=== PATIENT | female | born 1985 ===

== ENCOUNTER 2021-06-03 07:49 | Outpatient (REF) | payer OTHER, SELFPAY ==
[2021-06-03 11:41] LABS: MANUAL DIFF FLAG NO
[2021-06-03 11:45] LABS: Basophils Absolute Auto 0.1 X10*3/uL (0.0-0.2); Basophils Percent Auto 0.8 % (0-2); Eosinophils Absolute Auto 0.1 X10*3/uL (0.0-0.4); Eosinophils Percent Auto 1.5 % (0-4); Hematocrit 41.5 % (37.0-47.0); Hemoglobin 13.3 g/dl (12.0-16.0); Imm Gran Abs Auto 0.02 X10*3/uL (0.00-0.03); Imm Gran Pct Auto 0.3 % (0.0-0.4); Lymphocytes Absolute Auto 2.2 X10*3/uL (1.2-4.9); Mean Corpuscular Hemoglobin 25.9 pg (27.0-33.0); Mean Corpuscular Volume 80.7 fL (80.0-98.0); Mean Platelet Volume 10.8 fL (9.4-12.3); Monocytes Absolute Auto 0.5 X10*3/uL (0.1-1.2); Monocytes Percent Auto 7.3 % (2-11); Neutrophils Absolute Auto 3.8 x10*3/uL (2.0-8.3); Neutrophils Percent Auto 57.1 % (45-73); Platelet Count 325 X10*3/uL (160-400); Red Blood Count 5.14 X10*6/uL (4.20-5.50); Red Cell Distribution Width 15.2 % (11.0-16.0); White Blood Count 6.6 X10*3/uL (4.8-10.8)
[2021-06-03 12:14] LABS: Alanine Aminotransferase 16 U/L (0-31); Albumin Level 4.5 g/dL (3.5-5.0); Alkaline Phosphatase 38 U/L (39-117); Anion Gap 11 (12-20); Aspartate Amino Transferase 13 U/L (5-31); Bilirubin Total 0.5 mg/dL (0.0-1.0); Blood Urea Nitrogen 7 mg/dL (9-16); Calcium 9.3 mg/dL (8.4-10.2); Carbon Dioxide 26 mmol/L (22-29); Chloride 108 mmol/L (96-108); Cholesterol 181 mg/dL; Estimated Glomerular Filt Rate > 60; Glucose Fasting 110 mg/dL (60-99); HDL Cholesterol 46 mg/dL; LDL Cholesterol Calculated 117 mg/dl; Potassium 4.6 mmol/L (3.3-5.1); Sodium 140 mmol/L (135-145); Total Protein 6.8 g/dL (6.5-8.0); Triglycerides 94 mg/dL
[2021-06-03 12:28] LABS: TSH reflex Free T4 2.01 uIU/mL (0.32-4.0)
[2021-06-03 12:36] LABS: Vitamin B12 421 pg/mL (200-900)
[2021-06-08 15:26] LABS: Vitamin D 25-OH, D2 <4 ng/mL; Vitamin D 25-OH, D3 27 ng/mL; Vitamin D 25-OH, Total 27 ng/mL (30-100)
== END 2021-06-03 07:50 | disposition home or self-care (01) ==
LOC: HO.HMGCLDS 07:49
PROVIDERS: PCP Internal Medicine; Visit Provider Internal Medicine
DX: Z00.01 Encounter for general adult medical examination with abnormal findings (principal); E03.8 Other specified hypothyroidism; N97.9 Female infertility, unspecified; Z91.09 Other allergy status, other than to drugs and biological substances
CPT/HCPCS: 36415; 80053; 80061; 82306; 82607; 84443; 85025

== ENCOUNTER 2021-07-26 13:44 | Outpatient (REF) | payer OTHER, SELFPAY | END 2021-07-26 13:45 | disposition home or self-care (01) | LOC: HO.HMGCLDS 13:44 | PROVIDERS: PCP Internal Medicine; Visit Provider Internal Medicine | DX: Z20.822 Contact with and (suspected) exposure to COVID-19 (principal) | CPT/HCPCS: C9803; U0003; U0005 ==

== ENCOUNTER 2021-12-05 18:34 | Outpatient (REF) | payer OTHER, SELFPAY ==
[2021-12-05 19:17] LABS: Influenza A PCR POSITIVE (Negative); Influenza B PCR NEGATIVE (Negative); Resp Syncy Virus RNA Qual PCR NEGATIVE (Negative); SARS COV2 PCR INHOUSE NEGATIVE (Negative)
== END 2021-12-05 18:35 | disposition home or self-care (01) ==
LOC: HO.LNP 18:34
PROVIDERS: Visit Provider Internal Medicine
DX: Z20.822 Contact with and (suspected) exposure to COVID-19 (principal); R43.9 Unspecified disturbances of smell and taste
CPT/HCPCS: 0241U

== ENCOUNTER 2022-06-13 15:08 | Outpatient (REF) | payer OTHER, SELFPAY ==
[2022-06-13 16:24] LABS: MANUAL DIFF FLAG NO
[2022-06-13 16:38] LABS: Basophils Percent Auto 0.6 % (0-2); Eosinophils Absolute Auto 0.1 X10*3/uL (0.0-0.4); Eosinophils Percent Auto 1.5 % (0-4); Estimated Average Glucose 108 mg/dL; Hematocrit 41.3 % (37.0-47.0); Hemoglobin 13.4 g/dl (12.0-16.0); Hemoglobin A1c % 5.4 %; Imm Gran Abs Auto 0.03 X10*3/uL (0.00-0.03); Imm Gran Pct Auto 0.5 % (0.0-0.4); Lymphocytes Absolute Auto 2.5 X10*3/uL (1.2-4.9); Lymphocytes Percent Auto 38.4 % (20-40); Mean Corpuscular HGB Conc 32.4 g/dl (31.0-35.0); Mean Corpuscular Hemoglobin 27.7 pg (27.0-33.0); Mean Corpuscular Volume 85.3 fL (80.0-98.0); Mean Platelet Volume 10.6 fL (9.4-12.3); Monocytes Absolute Auto 0.5 X10*3/uL (0.1-1.2); Monocytes Percent Auto 6.8 % (2-11); Neutrophils Absolute Auto 3.4 x10*3/uL (2.0-8.3); Neutrophils Percent Auto 52.2 % (45-73); Platelet Count 289 X10*3/uL (160-400); Red Blood Count 4.84 X10*6/uL (4.20-5.50); Red Cell Distribution Width 14.9 % (11.0-16.0); White Blood Count 6.6 X10*3/uL (4.8-10.8)
[2022-06-13 17:42] LABS: Alanine Aminotransferase 22 U/L (0-31); Albumin Level 4.5 g/dL (3.5-5.0); Alkaline Phosphatase 45 U/L (39-117); Anion Gap 12 (12-20); Aspartate Amino Transferase 15 U/L (5-31); Bilirubin Total 0.4 mg/dL (0.0-1.0); Blood Urea Nitrogen 7 mg/dL (9-16); Calcium 9.3 mg/dL (8.4-10.2); Carbon Dioxide 28 mmol/L (22-29); Chloride 104 mmol/L (96-108); Estimated Glomerular Filt Rate > 60; Ferritin 12 ng/mL (10-122); Glucose Random 96 mg/dL (60-115); Potassium 4.2 mmol/L (3.3-5.1); Sodium 140 mmol/L (135-145); TSH reflex Free T4 4.52 uIU/mL (0.32-4.0); Total Protein 6.9 g/dL (6.5-8.0)
[2022-06-13 17:59] LABS: Folate > 20.0 ng/mL (> or = 4.0); Vitamin B12 421 pg/mL (200-900)
[2022-06-13 18:28] LABS: Free T4 (Free Thyroxine) 1.09 ng/dL (0.71-1.85)
[2022-06-14 07:47] LABS: LDL Cholesterol Direct 115 mg/dL (<100)
[2022-06-17 14:11] LABS: Vitamin D 25-OH, D2 <4 ng/mL; Vitamin D 25-OH, D3 19 ng/mL; Vitamin D 25-OH, Total 19 ng/mL (30-100)
== END 2022-06-13 15:09 | disposition home or self-care (01) ==
LOC: HO.HMGCLDS 15:08
PROVIDERS: PCP Internal Medicine; Visit Provider Internal Medicine
DX: Z00.01 Encounter for general adult medical examination with abnormal findings (principal); M19.90 Unspecified osteoarthritis, unspecified site; R53.83 Other fatigue; E03.8 Other specified hypothyroidism; R73.01 Impaired fasting glucose; Z91.09 Other allergy status, other than to drugs and biological substances
CPT/HCPCS: 36415; 80053; 82306; 82607; 82728; 82746; 83036; 83721; 84439; 84443; 85025

== ENCOUNTER 2023-06-01 15:41 | Outpatient (AMB) | payer OTHER, SELFPAY ==
[2023-06-01 15:49] VITALS: BP 122/80; PULSE 101; TEMP 37.2; O2SAT 98; BMI 30.7
--- NOTE | 2023-06-01 15:49 | AM.OFFWIN_ITS ---
Intake Vital Signs 06/01/23 15:49 Height 5 ft 6 in Weight 190 lb 8 oz BMI 30.7 BP 122/80 Blood Pressure Location Rt brachial Position Sitting Pulse 101 H Pulse Source Pulse Oximeter Temp 98.9 F Temp Source Temporal Artery Scan Pulse Oximetry (%) 98 Intake Visit Reasons: EST/ear pain Intake Note: pt is here for c/o ear pain bilateral with fatigue Patient Tobacco Use Status: Never used Tobacco Allergies No Known Allergies Allergy (Verified 06/01/23 16:21) Medication List - Last Reconciled 06/01/23 by Paul Rutledge MD azithromycin take 500 mg today (day 1), then 250 mg for 4 days (days 2-5) PO calcium carbonate (Calcium 500) 500 mg PO BID cetirizine (All Day Allergy (cetirizine)) 10 mg PO .qhs 90 days cholecalciferol (vitamin D3) 25 mcg PO DAILY 90 days levothyroxine 88 mcg PO DAILY 90 days bmeemksu-vjqwzdlss-OW 3.5-10,000-1 mg/mL-unit/mL-% 4 drps otic (ears) Q8H Do you need a note to return to daycare/school/sports/work: Yes HPI EST/ear pain HPI Details Patient presents for a sick visit. Reporting symptoms of sinus congestion, sore throat and difficulty swallowing. Low-grade fever. No family member is sick. No recent travel. Patient reports symptoms of malaise and fatigue. [facility] Social History Housing: House Patient Tobacco Use Status: Never used Tobacco e-Cigarette/Vaping Use: Never Used Second Hand Smoke Exposure: No Current occupational status: employed Cognitive needs: No Hearing needs: No Vision needs: No Physical Exam Vital Signs: Last Vital Signs Temp 98.9 F 06/01/23 15:49 Pulse 101 H 06/01/23 15:49 BP 122/80 06/01/23 15:49 Pulse Ox 98 06/01/23 15:49 BMI result Body Mass Index 30.7 Const General: cooperative and healthy appearing Nutritional Appearance: well nourished Orientation/consciousness: patient oriented x3 Limitations: no limitations HEENT Other: Right ear canal congested. Head: Yes normal to inspection Eyes General: appearance normal, both eyes and all related structures Neck Neck: Yes normal visual inspection Chest Chest palpation & inspection: normal palpation of entire chest wall Resp Effort & Inspection: normal respiratory effort Neuro General: patient oriented x3 Assessment & Plan Assessment & Plan (1) Upper respiratory tract infection: Code(s): J06.9 - Acute upper respiratory infection, unspecified Plan: Antibiotics ordered. Increase fluid intake. Tylenol for aches and pains. If symptoms worsen, follow-up here for a recheck. Medications: New rhhvpdxa-riygdgxav-FJ 3.5-10,000-1 mg/mL-unit/mL-% 4 drps otic (ears) Q8H 10 mL 0RF azithromycin take 500 mg today (day 1), then 250 mg for 4 days (days 2-5) PO 6 tabs 0RF Refilled cetirizine (All Day Allergy (cetirizine)) 10 mg PO .qhs 90 tabs 1RF 90 days Z91.09 - Other allergy status, other than to drugs and biological substances Coding Level of Care Code Est Pt Level 3 (98189) Diagnoses Upper respiratory tract infection J06.9
== END 2023-06-01 16:51 | disposition home or self-care (01) ==
PROVIDERS: PCP Internal Medicine; Visit Provider Internal Medicine
DX: J06.9 Acute upper respiratory infection, unspecified (principal)
CPT/HCPCS: 99213

== ENCOUNTER 2023-06-15 14:35 | Outpatient (AMB) | payer OTHER, SELFPAY ==
[2023-06-15 14:41] VITALS: BP 128/80; PULSE 83; O2SAT 98; BMI 30.9
--- NOTE | 2023-06-15 14:41 | MHC.PC.OV ---
Vital Signs 06/15/23 14:41 Height 5 ft 6 in Weight 191 lb 6 oz BMI 30.9 BP 128/80 Blood Pressure Location Rt brachial Position Sitting Pulse 83 Pulse Source Pulse Oximeter Pulse Oximetry (%) 98 Oxygen Delivery Method Room Air Intake Visit Reasons: Annual Allergies No Known Allergies Allergy (Verified 06/15/23 14:42) Medication List - Last Reconciled 06/15/23 by Norman Xiao MD calcium carbonate (Calcium 500) 500 mg PO BID cetirizine (All Day Allergy (cetirizine)) 10 mg PO .qhs 90 days cholecalciferol (vitamin D3) 25 mcg PO DAILY 90 days levothyroxine 88 mcg PO DAILY 90 days Tobacco use date assessed: 06/15/23 Dental Screening Dental Screen Date: 06/15/23 Did you have a dental visit in the last 12 months?: Yes Did you have a dental problem in the last 6 months where you did not have access to dental care?: No Was dental information given to patient?: Patient has dentist HPI Annual HPI Details Patient is a 37-year-old female came in today for annual physical examination BMI is 30.9 patient is a sweet She is taking levothyroxine 88 mcg and is due for labs Vital signs are stable [facility] Social History Housing: House Patient Tobacco Use Status: Never used Tobacco e-Cigarette/Vaping Use: Never Used Second Hand Smoke Exposure: No Current occupational status: employed Cognitive needs: No Hearing needs: No Vision needs: No Questionnaire PHQ-9 Over the last 2 weeks, how often have you been bothered by any of the following problems? 1. Little interest or pleasure in doing things: several days 2. Feeling down, depressed, or hopeless: not at all 3. Trouble falling or staying asleep, or sleeping too much: several days 4. Feeling tired or having little energy: several days 5. Poor appetite or overeating: not at all 6. Feeling bad about yourself - or that you are a failure or have let yourself or your family down: not at all 7. Trouble concentrating on things, such as reading the newspaper or watching television: not at all 8. Moving or speaking so slowly that other people could have noticed. Or the opposite - being so fidgety or restless that you have been moving around a lot more than usual: not at all 9. Thoughts that you would be better off or of hurting yourself in some way: not at all Total score: 3 Depression Screening Interpretation: Negative Depression Screening Done: Yes 00891 - PHQ-9 Billing: Yes Source: Developed by Drs. David Cano, Gloria William, Jerome Figueroa and colleagues, with an educational celia from [employer] Thrive Questionnaire Date Thrive assessed: 06/15/23 I am a: Patient What is your living situation today?: I have a steady place to live Within the past 12 months, did the food you bought not last and you didn't have the money to get more?: Never true Within the past 12 months, did you worry whether your food would run out before you got money to buy more?: Never true Do you have trouble paying for medicines?: No Do you have trouble getting transportation to medical appointments?: No Do you have trouble paying your heating and electricity bill?: No Do you have trouble taking care of your child, family member or friend?: No Do you have trouble with day-to-day activities such as bathing, preparing meals, shopping, managing finances, etc.?: No Are you currently unemployed and looking for a job?: No Are you interested in more education?: No Please select the resources that you would like help with: None Currently or been in a relationship where the following occur: no concerns reported AUDIT C Alcohol Use Questionnaire (AUDIT-C) 1. How often do you have a drink containing alcohol?: Never 3. How often do you have six or more drinks on one occasion?: Never Total Score: 0 Score Reviewed/Action Taken: Yes ROCIO-7 AMB Questionnaire ROCIO-7 Date ROCIO - 7 assessed: 06/15/23 Feeling nervous, anxious, or on edge: 1 = Several days Not being able to stop or control worryin = Several days Worrying too much about different things: 1 = Several days Trouble relaxin = Several days Being so restless that it is hard to sit still: 1 = Several days Becoming easily annoyed or irritable: 1 = Several days Feeling afraid as if something awful might happen: 0 = Not at all Total ROCIO-7 score (0-4 normal; 5-9 mild; 10-14 moderate; 15-21 severe): 6 Source: Developed by Drs. David Cano, Gloria William, Jerome Figueroa and colleagues, with an educational celia from [employer] ROCIO-7 Assessment Billing ROCIO-7 Assessment Tool: ROCIO-7 Assessment 70748 Review of Systems Const Denies chills, Denies fever(s) and Denies headache(s) Eyes Denies blurry vision ENT Denies headache(s), Denies nasal discharge, Denies nasal obstruction, Denies odynophagia and Denies sinus pain Card Denies chest pain at rest and Denies chest pain with activity Resp Denies cough and Denies hemoptysis GI Denies diarrhea, Denies odynophagia, Denies vomiting and Denies hematemesis Reports as per HPI Musc Denies abnormal gait Skin/Breast Reports as per HPI Neuro Denies Neuro-related abnormal movements, Denies Abnormal speech present, Denies abnormal gait, Denies headache(s) and Denies Sensory deficit (Neuro) Psych Denies mood swings and Denies paranoia Endo Reports as per HPI Kayden/Lymph Reports as per HPI Aller/Immun Reports as per HPI Physical exam (Primary Care) Vital Signs: Last Vital Signs Pulse 83 06/15/23 14:41 BP 128/80 06/15/23 14:41 Pulse Ox 98 06/15/23 14:41 Oxygen Delivery Method Room Air 06/15/23 14:41 BMI result Body Mass Index 30.9 Tobacco/Smoking Status: Tobacco use Status Tobacco use date assessed 06/15/23 06/15/23 14:43 Patient Tobacco Use Status Never used Tobacco 06/15/23 14:43 e-Cigarette/Vaping Use Never Used 06/15/23 14:43 PHQ-9: PHQ-9 Score PHQ-9: Total score 3 06/15/23 15:14 Depression Screening Interpretation: Negative Thrive Assessment: Date of Thrive Assessment Date Thrive assessed 06/15/23 06/15/23 15:14 Currently or been in a relationship where the following occur: no concerns reported Const General: cooperative, comfortable and no acute distress Orientation/consciousness: patient oriented x3 HENMT Head: Yes normocephalic and Yes atraumatic Eyes General: appearance normal, both eyes and all related structures Pupils: Equal, round and reactive pupils present EOM: EOMs intact bilaterally Neck Neck: Yes supple and No lymphadenopathy Thyroid: Thyroid normal Lymphatic: no lymphadenopathy noted Resp Effort & Inspection: normal respiratory effort and able to speak in complete sentences Auscultation: clear to auscultation bilaterally Cardio Heart sounds: S1 normal heart sound present and S2 normal heart sound present GI Palpation (GI): Soft to palpation and nontender Auscultation: normal bowel sounds General: Yes no CVA tenderness Back/Spine/Pelvis Back: no CVA tenderness Skin General skin exam: elasticity normal and turgor normal Neuro General: patient oriented x3 and gait normal Cranial nerves: Yes Equal, round and reactive pupils present Speech: No Abnormal speech present Sensory Exam: No Sensory deficit (Neuro) Coordination: tandem gait normal and Romberg test negative Extrem General: Yes normal exam except as noted and No edema Assessment and Plan Assessment & Plan (1) Encounter for general adult medical examination with abnormal findings: Code(s): Z00.01 - Encounter for general adult medical examination with abnormal findings (2) Environmental allergies: Code(s): Z91.09 - Other allergy status, other than to drugs and biological substances (3) Other specified hypothyroidism: Code(s): E03.8 - Other specified hypothyroidism (4) Vitamin D deficiency: Code(s): E55.9 - Vitamin D deficiency, unspecified (5) Impaired fasting blood sugar: Code(s): R73.01 - Impaired fasting glucose (6) Obesity due to excess calories: Code(s): E66.09 - Other obesity due to excess calories Qualifiers: Obesity classification: adult class 1 (BMI 30 - 34.9) Serious obesity comorbidity presence: without serious comorbidity Body mass index: BMI 30.0-30.9 Qualified Code(s): E66.09 - Other obesity due to excess calories; Z68.30 - Body mass index [BMI] 30.0-30.9, adult Plan Patient is a 42-year-old male came in today for his regular follow-up appointment Hypertension: Blood pressure is well controlled patient is taking atenolol chlorthalidone 50-25 mg and is tolerating medication. Asthma is stable patient is on montelukast and Dulera. Headaches are stable with amitriptyline 100 mg at night and sumatriptan as needed. GERD is stable with omeprazole. Labs were done February of this year reviewed again. New set of lab order placed to be done in October before visit. BMI is elevated patient is trying to lose weight. Orders: Orders Complete Blood Count Auto Diff Today E03.8 - Other specified hypothyroidism, E55.9 - Vitamin D deficiency, unspecified, R73.01 - Impaired fasting glucose, Z00.01 - Encounter for general adult medical examination with abnormal findings, Z91.09 - Other allergy status, other than to drugs and biological substances Comprehensive [place]. Panel Fast Today E03.8 - Other specified hypothyroidism, E55.9 - Vitamin D deficiency, unspecified, R73.01 - Impaired fasting glucose, Z00.01 - Encounter for general adult medical examination with abnormal findings, Z91.09 - Other allergy status, other than to drugs and biological substances Lipid Panel Today E03.8 - Other specified hypothyroidism, E55.9 - Vitamin D deficiency, unspecified, E66.09 - Other obesity due to excess calories, R73.01 - Impaired fasting glucose, Z00.01 - Encounter for general adult medical examination with abnormal findings, Z91.09 - Other allergy status, other than to drugs and biological substances TSH reflex Free T4 Today E03.8 - Other specified hypothyroidism, E55.9 - Vitamin D deficiency, unspecified, R73.01 - Impaired fasting glucose, Z00.01 - Encounter for general adult medical examination with abnormal findings, Z91.09 - Other allergy status, other than to drugs and biological substances Vitamin D 25-OH (D2 and D3) Today E03.8 - Other specified hypothyroidism, E55.9 - Vitamin D deficiency, unspecified, R73.01 - Impaired fasting glucose, Z00.01 - Encounter for general adult medical examination with abnormal findings, Z91.09 - Other allergy status, other than to drugs and biological substances Hemoglobin A1c Today R73.01 - Impaired fasting glucose Coding Level of Care Code Est Pt Prev Care 18-39y([id number]) Diagnoses Encounter for general adult medical examination with abnormal findings Z00.01 Environmental allergies Z91.09 Other specified hypothyroidism E03.8 Vitamin D deficiency E55.9 Impaired fasting blood sugar R73.01 Class 1 obesity due to excess calories without serious comorbidity with body mass index (BMI) of 30.0 to 30.9 in adult E66.09; Z68.30 Obesity classification: adult class 1 (BMI 30 - 34.9) Serious obesity comorbidity presence: without serious comorbidity Body mass index: BMI 30.0-30.9 Additional Codes ROCIO-7 Assessment Billing - ROCIO-7 Assessment Tool: ROCIO-7 Assessment 40804 ([id number])
== END 2023-06-15 15:08 | disposition home or self-care (01) ==
PROVIDERS: Visit Provider Internal Medicine
DX: Z00.00 Encounter for general adult medical examination without abnormal findings (principal); Z91.09 Other allergy status, other than to drugs and biological substances; E03.8 Other specified hypothyroidism; E55.9 Vitamin D deficiency, unspecified; R73.01 Impaired fasting glucose; E66.09 Other obesity due to excess calories; Z68.30 Body mass index [BMI] 30.0-30.9, adult
CPT/HCPCS: 99395

== ENCOUNTER 2023-07-19 09:27 | Outpatient (REF) | payer OTHER, SELFPAY ==
[2023-07-19 11:29] LABS: MANUAL DIFF FLAG NO
[2023-07-19 11:50] LABS: Basophils Percent Auto 0.5 % (0-2); Eosinophils Absolute Auto 0.1 X10*3/uL (0.0-0.4); Eosinophils Percent Auto 1.5 % (0-4); Hematocrit 42.4 % (37.0-47.0); Hemoglobin 13.7 g/dl (12.0-16.0); Imm Gran Abs Auto 0.02 X10*3/uL (0.00-0.03); Imm Gran Pct Auto 0.3 % (0.0-0.4); Lymphocytes Absolute Auto 2.2 X10*3/uL (1.2-4.9); Lymphocytes Percent Auto 36.5 % (20-40); Mean Corpuscular HGB Conc 32.3 g/dl (31.0-35.0); Mean Corpuscular Hemoglobin 26.2 pg (27.0-33.0); Mean Corpuscular Volume 81.2 fL (80.0-98.0); Mean Platelet Volume 10.5 fL (9.4-12.3); Monocytes Absolute Auto 0.4 X10*3/uL (0.1-1.2); Monocytes Percent Auto 5.9 % (2-11); Neutrophils Absolute Auto 3.4 x10*3/uL (2.0-8.3); Neutrophils Percent Auto 55.3 % (45-73); Platelet Count 295 X10*3/uL (160-400); Red Blood Count 5.22 X10*6/uL (4.20-5.50); Red Cell Distribution Width 15.3 % (11.0-16.0); White Blood Count 6.1 X10*3/uL (4.8-10.8)
[2023-07-19 11:58] LABS: Estimated Average Glucose 117 mg/dL; Hemoglobin A1c % 5.7 % (<6.0)
[2023-07-19 12:40] LABS: Alanine Aminotransferase 16 U/L (0-31); Albumin Level 4.5 g/dL (3.5-5.0); Alkaline Phosphatase 31 U/L (39-117); Anion Gap 11 (12-20); Aspartate Amino Transferase 14 U/L (5-31); Bilirubin Total 0.4 mg/dL (0.0-1.0); Blood Urea Nitrogen 8 mg/dL (9-16); Calcium 9.1 mg/dL (8.4-10.2); Carbon Dioxide 26 mmol/L (22-29); Chloride 107 mmol/L (96-108); Cholesterol 162 mg/dL (<200); Estimated Glomerular Filt Rate > 60; Glucose Fasting 92 mg/dL (60-99); HDL Cholesterol 48 mg/dL (>40); LDL Cholesterol Calculated 98 mg/dL (<100); Potassium 4.3 mmol/L (3.3-5.1); Sodium 140 mmol/L (135-145); TSH reflex Free T4 2.01 uIU/mL (0.32-4.0); Triglycerides 80 mg/dL (<150)
[2023-07-24 17:54] LABS: Vitamin D 25-OH, D2 <4 ng/mL; Vitamin D 25-OH, D3 20 ng/mL; Vitamin D 25-OH, Total 20 ng/mL (30-100)
== END 2023-07-19 09:28 | disposition home or self-care (01) ==
LOC: HO.HMGCLDS 09:27
PROVIDERS: PCP Internal Medicine; Visit Provider Internal Medicine
DX: Z00.01 Encounter for general adult medical examination with abnormal findings (principal); E03.8 Other specified hypothyroidism; E55.9 Vitamin D deficiency, unspecified; R73.01 Impaired fasting glucose; E66.09 Other obesity due to excess calories; Z91.09 Other allergy status, other than to drugs and biological substances
CPT/HCPCS: 36415; 80053; 80061; 82306; 83036; 84443; 85025

== ENCOUNTER 2023-10-05 15:08 | Outpatient (AMB) | payer OTHER, SELFPAY ==
[2023-10-05 15:09] VITALS: BP 124/78; PULSE 91; TEMP 37; O2SAT 98; BMI 30.7
--- NOTE | 2023-10-05 15:09 | AM.OFFWIN_ITS ---
Intake Vital Signs 10/05/23 15:09 Height 5 ft 6 in Weight 190 lb BMI 30.7 BP 124/78 Blood Pressure Location Rt brachial Position Sitting Pulse 91 Pulse Source Pulse Oximeter Temp 98.6 F Temp Source Oral Pulse Oximetry (%) 98 Oxygen Delivery Method Room Air Intake Visit Reasons: EP runny nose fatigue Intake Note: Pt is here today for runny nose started last night Patient Tobacco Use Status: Never used Tobacco Allergies No Known Allergies Allergy (Verified 10/05/23 15:10) Do you need a note to return to daycare/school/sports/work: No HPI HPI Comments History of Present Illness Details 37 y/o female patient who presents to [facility] in clinic with c/o runny nose and sneezing. Reports that symptoms started yesterday. Denies fevers but admits to chills. Denies nausea or vomiting. [facility] Social History Housing: House Patient Tobacco Use Status: Never used Tobacco e-Cigarette/Vaping Use: Never Used Second Hand Smoke Exposure: No Current occupational status: employed Cognitive needs: No Hearing needs: No Vision needs: No Review of Systems Const All systems reviewed & are unremarkable except as noted in HPI and below Physical Exam Vital Signs: Last Vital Signs Temp 98.6 F 10/05/23 15:09 Pulse 91 10/05/23 15:09 BP 124/78 10/05/23 15:09 Pulse Ox 98 10/05/23 15:09 Oxygen Delivery Method Room Air 10/05/23 15:09 BMI result Body Mass Index 30.7 Const General: comfortable and no acute distress Orientation/consciousness: patient oriented x3 HEENT Head: Yes normocephalic Ears: external ears normal and TM abnormal obstructed by cerumen bilateral General nose exam: Abnormal mucous membranes and turbinates present boggy and erythematous Face and sinus: Yes sinuses nontender Mouth: moist mucous membranes Resp Effort & Inspection: normal respiratory effort, able to speak in complete sentences and no cough Auscultation: clear to auscultation bilaterally, no crackles, no rales, no rhonchi and no wheezes Neuro General: patient oriented x3, gait normal and moves all extremities Psych Speech and movement: Normal speech and movement present Assessment & Plan Assessment & Plan (1) Acute nasopharyngitis (common cold): Code(s): J00 - Acute nasopharyngitis [common cold] Plan: - OTC cold/flu remedies - Rest and hydrate with warm water - Continue taking Ceterizine as directed for allergies. Orders: Orders SARS-CoV2/FLU/RSV Today J00 - Acute nasopharyngitis [common cold] Medications: New fluticasone propionate 50 mcg/actuation (Flonase Allergy Relief) 1 spray intranasal BID 16 grams 0RF J00 - Acute nasopharyngitis [common cold] Coding Level of Care Code Est Pt Level 3 (65075) Diagnoses Acute nasopharyngitis (common cold) J00 Time Spent (min) 15
== END 2023-10-05 15:54 | disposition home or self-care (01) ==
PROVIDERS: PCP Internal Medicine; Visit Provider Nurse Practitioner Family
DX: J00 Acute nasopharyngitis [common cold] (principal)
CPT/HCPCS: 99213

== ENCOUNTER 2023-10-05 15:34 | Outpatient (REF) | payer OTHER, SELFPAY ==
[2023-10-06 11:55] LABS: Influenza A PCR NEGATIVE (Negative); Influenza B PCR NEGATIVE (Negative); Resp Syncy Virus RNA Qual PCR NEGATIVE (Negative); SARS COV2 PCR INHOUSE NEGATIVE (Negative)
== END 2023-10-05 15:35 | disposition home or self-care (01) ==
LOC: HO.LAB 15:34
PROVIDERS: Visit Provider Nurse Practitioner Family
DX: Z11.52 Encounter for screening for COVID-19 (principal); Z20.822 Contact with and (suspected) exposure to COVID-19; J00 Acute nasopharyngitis [common cold]
CPT/HCPCS: 0241U

== ENCOUNTER 2023-12-11 15:12 | Outpatient (AMB) | payer OTHER, SELFPAY ==
[2023-12-11 15:19] VITALS: BP 120/86; PULSE 90; O2SAT 98; BMI 30.9
--- NOTE | 2023-12-11 15:19 | A.OFFPC_ITS ---
Vital Signs 12/11/23 15:19 Height 5 ft 6 in Weight 191 lb 6 oz BMI 30.9 BP 120/86 Blood Pressure Location Rt brachial Position Sitting Pulse 90 Pulse Source Pulse Oximeter Pulse Oximetry (%) 98 Oxygen Delivery Method Room Air Intake Visit Reasons: 6 Month F/U Allergies No Known Allergies Allergy (Verified 12/11/23 15:21) Medication List - Last Reconciled 12/11/23 by Norman Xiao MD cetirizine (All Day Allergy (cetirizine)) 10 mg PO .qhs 90 days cholecalciferol (vitamin D3) 1,250 mcg PO QWEEK 3 months fluticasone propionate 50 mcg/actuation 1 spray intranasal BID levothyroxine 88 mcg PO DAILY 90 days Tobacco use date assessed: 12/11/23 Dental Screening Dental Screen Date: 12/11/23 Did you have a dental visit in the last 12 months?: Yes Did you have a dental problem in the last 6 months where you did not have access to dental care?: No Was dental information given to patient?: Patient has dentist HPI 6 Month F/U HPI Details Patient is a 38-year-old female came in today for her regular six-month follow-up appointment Patient says that allergies are bothering her, she is taking cetirizine [id number] which is helping but she is still continued to have postnasal drip She has a Flonase nasal spray at home, I have advised her to start using that once a day in each nostril, and I have also sent montelukast to be taken in the morning Continue with vitamin-D supplement Continue with levothyroxine 88 mcg, she is due for TSH Patient have impaired fasting sugar, I have also added hemoglobin A1c Patient have physical exam appointment in June she will have full set of labs before visit, order placed BMI is elevated she is trying to lose weight. [facility] Social History Housing: House Patient Tobacco Use Status: Never used Tobacco e-Cigarette/Vaping Use: Never Used Second Hand Smoke Exposure: No Current occupational status: employed Cognitive needs: No Hearing needs: No Vision needs: No Questionnaire Thrive Questionnaire Date Thrive assessed: 06/15/23 AUDIT C Alcohol Use Questionnaire (AUDIT-C) 1. How often do you have a drink containing alcohol?: Never 3. How often do you have six or more drinks on one occasion?: Never Total Score: 0 Score Reviewed/Action Taken: Yes ROCIO-7 AMB Questionnaire ROCIO-7 Date ROCIO - 7 assessed: 06/15/23 Source: Developed by Drs. David Cano, Gloria William, Jerome Figueroa and colleagues, with an educational celia from [employer]. Review of Systems Const Denies chills and Denies fever(s) ENT Denies epistaxis Card Denies chest pain Resp Denies chest congestion, Denies cough and Denies hemoptysis GI Denies diarrhea and Denies nausea Skin/Breast Denies rash Neuro Reports no additional complaints Psych Reports no additional complaints Endo Reports no additional complaints Physical exam (Primary Care) Vital Signs: Last Vital Signs Pulse 90 12/11/23 15:19 BP 120/86 12/11/23 15:19 Pulse Ox 98 12/11/23 15:19 Oxygen Delivery Method Room Air 12/11/23 15:19 BMI result Body Mass Index 30.9 Tobacco/Smoking Status: Tobacco use Status Tobacco use date assessed 12/11/23 12/11/23 15:21 Patient Tobacco Use Status Never used Tobacco 12/11/23 15:21 e-Cigarette/Vaping Use Never Used 12/11/23 15:21 Thrive Assessment: Date of Thrive Assessment Date Thrive assessed 06/15/23 12/11/23 15:21 Const General: cooperative, comfortable and no acute distress Orientation/consciousness: patient oriented x3 HENMT Head: Yes normocephalic Eyes General: appearance normal, both eyes and all related structures Neck Neck: Yes supple Resp Effort & Inspection: normal respiratory effort, no cough and no stridor Cardio Rhythm: regular rhythm Heart sounds: S1 normal heart sound present and S2 normal heart sound present Skin General skin exam: turgor normal Neuro General: patient oriented x3, tone normal and moves all extremities Extrem Right lower extremity: no edema Left lower extremity: no edema Assessment and Plan Assessment & Plan (1) Other specified hypothyroidism: Code(s): E03.8 - Other specified hypothyroidism (2) Impaired fasting blood sugar: Code(s): R73.01 - Impaired fasting glucose (3) Environmental allergies: Code(s): Z91.09 - Other allergy status, other than to drugs and biological substances (4) Vitamin D deficiency: Code(s): E55.9 - Vitamin D deficiency, unspecified (5) Obesity due to excess calories: Code(s): E66.09 - Other obesity due to excess calories Qualifiers: Obesity classification: adult class 1 (BMI 30 - 34.9) Serious obesity comorbidity presence: without serious comorbidity Body mass index: BMI 30.0- 30.9 Qualified Code(s): E66.09 - Other obesity due to excess calories; Z68.30 - Body mass index [BMI] 30.0-30.9, adult Plan Patient is a 38-year-old female came in today for her regular six-month follow- up appointment Patient says that allergies are bothering her, she is taking cetirizine [id number] which is helping but she is still continued to have postnasal drip She has a Flonase nasal spray at home, I have advised her to start using that once a day in each nostril, and I have also sent montelukast to be taken in the morning Continue with vitamin-D supplement Continue with levothyroxine 88 mcg, she is due for TSH Patient have impaired fasting sugar, I have also added hemoglobin A1c Patient have physical exam appointment in June she will have full set of labs before visit, order placed BMI is elevated she is trying to lose weight. Orders: Orders TSH reflex Free T4 Today E03.8 - Other specified hypothyroidism Comprehensive [place]. Panel Fast 6 Months E03.8 - Other specified hypothyroidism, E55.9 - Vitamin D deficiency, unspecified, E66.09 - Other obesity due to excess calories, R73.01 - Impaired fasting glucose, Z68.30 - Body mass index [BMI] 30.0-30.9, adult, Z91.09 - Other allergy status, other than to drugs and biological substances Lipid Panel 6 Months E03.8 - Other specified hypothyroidism, E55.9 - Vitamin D deficiency, unspecified, E66.09 - Other obesity due to excess calories, R73.01 - Impaired fasting glucose, Z68.30 - Body mass index [BMI] 30.0-30.9, adult, Z91.09 - Other allergy status, other than to drugs and biological substances TSH reflex Free T4 6 Months E03.8 - Other specified hypothyroidism, E55.9 - Vitamin D deficiency, unspecified, E66.09 - Other obesity due to excess calories, R73.01 - Impaired fasting glucose, Z68.30 - Body mass index [BMI] 30.0-30.9, adult, Z91.09 - Other allergy status, other than to drugs and biological substances Hemoglobin A1c Today R73.01 - Impaired fasting glucose Complete Blood Count Auto Diff 6 Months E03.8 - Other specified hypothyroidism, E55.9 - Vitamin D deficiency, unspecified, E66.09 - Other obesity due to excess calories, R73.01 - Impaired fasting glucose, Z68.30 - Body mass index [BMI] 30.0-30.9, adult, Z91.09 - Other allergy status, other than to drugs and biological substances Vitamin D 25-OH (D2 and D3) 6 Months E03.8 - Other specified hypothyroidism, E55.9 - Vitamin D deficiency, unspecified, E66.09 - Other obesity due to excess calories, R73.01 - Impaired fasting glucose, Z68.30 - Body mass index [BMI] 30.0-30.9, adult, Z91.09 - Other allergy status, other than to drugs and biological substances Hemoglobin A1c 6 Months E03.8 - Other specified hypothyroidism, E55.9 - Vitamin D deficiency, unspecified, E66.09 - Other obesity due to excess calories, R73.01 - Impaired fasting glucose, Z68.30 - Body mass index [BMI] 30.0-30.9, adult, Z91.09 - Other allergy status, other than to drugs and biological substances Medications: New montelukast 10 mg PO DAILY 90 tabs 0RF Coding Level of Care Code Est Pt Level 3 (65860) Diagnoses Other specified hypothyroidism E03.8 Impaired fasting blood sugar R73.01 Environmental allergies Z91.09 Vitamin D deficiency E55.9 Class 1 obesity due to excess calories without serious comorbidity with body mass index (BMI) of 30.0 to 30.9 in adult E66.09; Z68.30 Obesity classification: adult class 1 (BMI 30 - 34.9) Serious obesity comorbidity presence: without serious comorbidity Body mass index: BMI 30.0-30.9
== END 2023-12-11 15:30 | disposition home or self-care (01) ==
PROVIDERS: PCP Internal Medicine; Visit Provider Internal Medicine
DX: E03.8 Other specified hypothyroidism (principal); R73.01 Impaired fasting glucose; Z91.09 Other allergy status, other than to drugs and biological substances; E55.9 Vitamin D deficiency, unspecified; E66.09 Other obesity due to excess calories; Z68.30 Body mass index [BMI] 30.0-30.9, adult
CPT/HCPCS: 99213

== ENCOUNTER 2024-01-02 11:20 | Outpatient (AMB) | payer OTHER, SELFPAY ==
[2024-01-02 11:20] VITALS: BP 140/80; PULSE 92; TEMP 36.5; O2SAT 98; BMI 29.0
--- NOTE | 2024-01-02 11:20 | MHC.OFFWIV ---
Intake Vital Signs 01/02/24 11:20 Height 5 ft 6 in Weight 180 lb BMI 29.0 BP 140/80 H Blood Pressure Location Lt brachial Position Sitting Pulse 92 Pulse Source Pulse Oximeter Temp 97.7 F Temp Source Temporal Artery Scan Pulse Oximetry (%) 98 Oxygen Delivery Method Room Air Intake Visit Reasons: EP rt ear pain hard time breathing night Intake Note: pt is here today for rt ear pain hard time breathing at night 2 weeks ago Patient Tobacco Use Status: Never used Tobacco Allergies No Known Allergies Allergy (Verified 01/02/24 11:24) Do you need a note to return to daycare/school/sports/work: Yes HPI HPI Comments History of Present Illness Details 38-year-old female complaining of right ear pain and cough with occasional wheezing for the last few weeks. The patient has a past medical history of allergies denies any particular injury or trauma to the area [facility] Social History Housing: House Patient Tobacco Use Status: Never used Tobacco e-Cigarette/Vaping Use: Never Used Second Hand Smoke Exposure: No Current occupational status: employed Cognitive needs: No Hearing needs: No Vision needs: No Review of Systems Const All systems reviewed & are unremarkable except as noted in HPI and below Eyes Reports no additional complaints ENT Reports otalgia and Reports nasal congestion Card Reports no additional complaints Resp Reports cough and Reports wheezing GI Reports no additional complaints Aller/Immun Reports wheezing Physical Exam Vital Signs: Last Vital Signs Temp 97.7 F 01/02/24 11:20 Pulse 92 01/02/24 11:20 BP 140/80 H 01/02/24 11:20 Pulse Ox 98 01/02/24 11:20 Oxygen Delivery Method Room Air 01/02/24 11:20 BMI result Body Mass Index 29.0 Const General: healthy appearing and no acute distress HEENT Head: Yes normal to inspection, Yes normocephalic and Yes atraumatic Ears: hearing grossly normal bilaterally, external ears normal, TM's normal bilaterally and EAC's normal General nose exam: Normal external nose present Face and sinus: Yes normal facial exam and Yes sinuses nontender Throat: Yes posterior oropharynx normal Resp Effort & Inspection: normal respiratory effort Auscultation: clear to auscultation bilaterally Cardio Rate: regular rate Rhythm: regular rhythm Assessment & Plan Assessment & Plan (1) Ear pain, right: Code(s): H92.01 - Otalgia, right ear Plan: Antibiotics ordered for the ear and prednisone for the cough. We will follow up with her PCP (2) Otitis media, right: Code(s): H66.91 - Otitis media, unspecified, right ear Plan: See plan (3) Cough: Code(s): R05.9 - Cough, unspecified Plan: See plan Medications: New amoxicillin 875 mg PO BID 7 days 14 tabs 0RF prednisone Take 3 tabs for 3 days 10 mg PO DIRECTED 9 tabs 0RF Coding Level of Care Code Est Pt Level 3 (51025) Diagnoses Ear pain, right H92.01 Otitis media, right H66.91 Cough R05.9
== END 2024-01-02 12:45 | disposition home or self-care (01) ==
PROVIDERS: PCP Internal Medicine; Visit Provider Physician Assistant Medical
DX: H92.01 Otalgia, right ear (principal); H66.91 Otitis media, unspecified, right ear; R05.9 Cough, unspecified
CPT/HCPCS: 99213

== ENCOUNTER 2024-01-02 11:38 | Outpatient (REF) | payer OTHER, SELFPAY ==
[2024-01-02 14:30] LABS: Estimated Average Glucose 114 mg/dL; Hemoglobin A1c % 5.6 % (<6.0)
[2024-01-02 14:45] LABS: TSH reflex Free T4 1.97 uIU/mL (0.32-4.0)
== END 2024-01-02 11:39 | disposition home or self-care (01) ==
LOC: HO.HMGCLDS 11:38
PROVIDERS: PCP Internal Medicine; Visit Provider Internal Medicine
DX: E03.8 Other specified hypothyroidism (principal); R73.01 Impaired fasting glucose
CPT/HCPCS: 36415; 83036; 84443

== ENCOUNTER 2024-07-08 15:36 | Outpatient (AMB) | payer OTHER, SELFPAY ==
[2024-07-08 15:39] VITALS: BP 142/88; PULSE 82; O2SAT 98; BMI 29.6
--- NOTE | 2024-07-08 15:39 | A.OFFPC_ITS ---
Vital Signs 07/08/24 15:39 Height 5 ft 6 in Weight 183 lb 4 oz BMI 29.6 BP 142/88 H Blood Pressure Location Rt brachial Position Sitting Pulse 82 Pulse Source Pulse Oximeter Pulse Oximetry (%) 98 Oxygen Delivery Method Room Air Intake Visit Reasons: Annual PE Allergies No Known Allergies Allergy (Verified 07/08/24 15:49) Medication List - Last Reconciled 07/08/24 by Norman Xiao MD cetirizine (All Day Allergy (cetirizine)) 10 mg PO .qhs 90 days cholecalciferol (vitamin D3) 1,250 mcg PO QWEEK 3 months fluticasone propionate 50 mcg/actuation 1 spray intranasal BID levothyroxine 88 mcg PO DAILY 90 days montelukast 10 mg PO DAILY Tobacco use date assessed: 07/08/24 Dental Screening Dental Screen Date: 07/08/24 Did you have a dental visit in the last 12 months?: Yes Did you have a dental problem in the last 6 months where you did not have access to dental care?: No Was dental information given to patient?: Patient has dentist HPI Annual PE HPI Details Chief Complaint: Physical exam The patient presents with concerns about elevated blood pressure and anxiety. Assessment and Plan 38-year-old female with a history of thy roid disorder presenting with elevated blood pressure and anxiety. The patient's blood pressure was recorded in the 140s, suggestive of essential hypertension. Patient reports a history of elevated readings earlier in the year. Anxiety is noted potentially related to situational stress, including family-related concerns. Patient has expressed interest in evaluating behavioral health but is concerned about language barriers. 1. Anxiety Disorder Discussion on anxiety potentially contributing to elevated blood pressure. Suggest trial use of anti-anxiety medication subject to patient?s comfort. A referral to a behavior therapist who can communicate in [place] is considered for further management. Stress management strategies and monitoring of mental health symptoms are advised. 2. Hormonal Skin Change The patient reports recurring skin changes potentially linked to hormonal fluctuations after . The patient's current skin status will be reviewed in subsequent visits if changes persist. 3. History Of Thyroid Disorder Repeat thyroid levels with emphasis on management continuity. Pending lab results to evaluate metabolic control. Active order for a fasting blood test to assess thyroid function. 4. Essential Hypertension The patient's blood pressure is in the 140s. A home blood pressure monitor is recommended for daily readings over the next 10 days to confirm high readings. Possibility of medication initiation depending on further monitoring results. Follow-up scheduling in three weeks to reassess the condition and discuss potential treatment options. Diagnostic results - Labs: Pending fasting blood test imerar behzad thyroid function. Problem List - Essential Hypertension - Anxiety Disorder - Hormonal Skin Change - History of Thyroid Disorder Health Maintenance: Need OBGYN visit, referral placed [place] [facility] - Referral consideration for behavioral therapist proficient in [place]. Patient Instructions: Follow-up in 4 weeks for blood pressure, labs and anxiety post starting Lexapro 5 mg PFSH Social History Housing: House Patient Tobacco Use Status: Never used Tobacco e-Cigarette/Vaping Use: Never Used Second Hand Smoke Exposure: No Current occupational status: employed Cognitive needs: No Hearing needs: No Vision needs: No Questionnaire PHQ-9 Over the last 2 weeks, how often have you been bothered by any of the following problems? 1. Little interest or pleasure in doing things: not at all 2. Feeling down, depressed, or hopeless: not at all 3. Trouble falling or staying asleep, or sleeping too much: not at all 4. Feeling tired or having little energy: several days 5. Poor appetite or overeating: not at all 6. Feeling bad about yourself - or that you are a failure or have let yourself or your family down: not at all 7. Trouble concentrating on things, such as reading the newspaper or watching television: several days 8. Moving or speaking so slowly that other people could have noticed. Or the opposite - being so fidgety or restless that you have been moving around a lot more than usual: not at all 9. Thoughts that you would be better off or of hurting yourself in some way: not at all Total score: 2 Depression Screening Interpretation: Negative Depression Screening Done: Yes 12168 - PHQ-9 Billing: Yes Source: Developed by Drs. David Cano, Gloria William, Jerome Figueroa and colleagues, with an educational celia from [employer]. Thrive Questionnaire Date Thrive assessed: 07/08/24 I am a: Patient What is your living situation today?: I have a steady place to live Within the past 12 months, did the food you bought not last and you didn't have the money to get more?: Never true Within the past 12 months, did you worry whether your food would run out before you got money to buy more?: Never true Do you have trouble paying for medicines?: No Do you have trouble getting transportation to medical appointments?: No Do you have trouble paying your heating and electricity bill?: No Do you have trouble taking care of your child, family member or friend?: No Do you have trouble with day-to-day activities such as bathing, preparing meals, shopping, managing finances, etc.?: No Are you currently unemployed and looking for a job?: No Are you interested in more education?: No Please select the resources that you would like help with: None Currently or been in a relationship where the following occur: No concerns reported THRIVE Score: 0 AUDIT C Alcohol Use Questionnaire (AUDIT-C) 1. How often do you have a drink containing alcohol?: Never 3. How often do you have six or more drinks on one occasion?: Never Total Score: 0 Score Reviewed/Action Taken: Yes ROCIO-7 AMB Questionnaire ROCIO-7 Date ROCIO - 7 assessed: 07/08/24 Feeling nervous, anxious, or on edge: 0 = Not at all Not being able to stop or control worryin = Not at all Worrying too much about different things: 1 = Several days Trouble relaxin = Several days Being so restless that it is hard to sit still: 1 = Several days Becoming easily annoyed or irritable: 1 = Several days Feeling afraid as if something awful might happen: 0 = Not at all Total ROCIO-7 score (0-4 normal; 5-9 mild; 10-14 moderate; 15-21 severe): 4 Source: Developed by Drs. David Cano, Gloria William, Jerome Figueroa and colleagues, with an educational celia from [employer]. ROCIO-7 Assessment Billing ROCIO-7 Assessment Tool: ROCIO-7 Assessment 74834 Review of Systems Const Denies chills, Denies fever(s) and Denies headache(s) Eyes Denies blurry vision ENT Denies headache(s), Denies nasal discharge, Denies nasal obstruction, Denies odynophagia and Denies sinus pain Card Denies chest pain at rest and Denies chest pain with activity Resp Denies cough and Denies hemoptysis GI Denies diarrhea, Denies odynophagia, Denies vomiting and Denies hematemesis Reports as per HPI Musc Denies abnormal gait Skin/Breast Reports as per HPI Neuro Denies Neuro-related abnormal movements, Denies Abnormal speech present, Denies abnormal gait, Denies headache(s) and Denies Sensory deficit (Neuro) Psych Denies mood swings and Denies paranoia Endo Reports as per HPI Kayden/Lymph Reports as per HPI Aller/Immun Reports as per HPI Physical exam (Primary Care) Vital Signs: Last Vital Signs Pulse 82 07/08/24 15:39 BP 142/88 H 07/08/24 15:39 Pulse Ox 98 07/08/24 15:39 Oxygen Delivery Method Room Air 07/08/24 15:39 BMI result Body Mass Index 29.6 Tobacco/Smoking Status: Tobacco use Status Tobacco use date assessed 07/08/24 07/08/24 15:49 Patient Tobacco Use Status Never used Tobacco 07/08/24 15:40 e-Cigarette/Vaping Use Never Used 07/08/24 15:40 PHQ-9: PHQ-9 Score PHQ-9: Total score 2 07/08/24 15:49 Depression Screening Interpretation: Negative Thrive Assessment: Date of Thrive Assessment Date Thrive assessed 07/08/24 07/08/24 15:49 Currently or been in a relationship where the following occur: No concerns reported Const General: cooperative, comfortable and no acute distress Orientation/consciousness: patient oriented x3 HENMT Head: Yes normocephalic and Yes atraumatic Eyes General: appearance normal, both eyes and all related structures Pupils: Equal, round and reactive pupils present EOM: EOMs intact bilaterally Neck Neck: Yes supple and No lymphadenopathy Thyroid: Thyroid normal Lymphatic: no lymphadenopathy noted Resp Effort & Inspection: normal respiratory effort and able to speak in complete sentences Auscultation: clear to auscultation bilaterally Cardio Heart sounds: S1 normal heart sound present and S2 normal heart sound present GI Palpation (GI): Soft to palpation and nontender Auscultation: normal bowel sounds General: Yes no CVA tenderness Back/Spine/Pelvis Back: no CVA tenderness Skin General skin exam: elasticity normal and turgor normal Neuro General: patient oriented x3 and gait normal Cranial nerves: Yes Equal, round and reactive pupils present Speech: No Abnormal speech present Sensory Exam: No Sensory deficit (Neuro) Coordination: tandem gait normal and Romberg test negative Extrem General: Yes normal exam except as noted and No edema Coding Level of Care Code Est Pt Level 3 (38781) Est Pt Prev Care 18-39y(82374) Diagnoses Encounter for general adult medical examination with abnormal findings Z00.01 Anxiety, generalized F41.1 Other specified hypothyroidism E03.8 Impaired fasting blood sugar R73.01 Additional Codes ROCIO-7 Assessment Billing - ROCIO-7 Assessment Tool: ROCIO-7 Assessment 93656 ([id number]) PHQ-9 - 38010 - PHQ-9 Billing: Yes ([id number]) Assessment & Plan Assessment & Plan (1) Encounter for general adult medical examination with abnormal findings: Code(s): Z00.01 - Encounter for general adult medical examination with abnormal findings Category: Medical (2) Anxiety, generalized: Code(s): F41.1 - Generalized anxiety disorder Category: Medical (3) Other specified hypothyroidism: Code(s): E03.8 - Other specified hypothyroidism Category: Medical (4) Impaired fasting blood sugar: Code(s): R73.01 - Impaired fasting glucose Category: Medical Plan Chief Complaint: Physical exam The patient presents with concerns about elevated blood pressure and anxiety. Assessment and Plan 38-year-old female with a history of thyroid disorder presenting with elevated blood pressure and anxiety. The patient's blood pressure was recorded in the 140s, suggestive of essential hypertension. Patient reports a history of elevated readings earlier in the year. Anxiety is noted potentially related to situational stress, including family-related concerns. Patient has expressed interest in evaluating behavioral health but is concerned about language barriers. 1. Anxiety Disorder Discussion on anxiety potentially contributing to elevated blood pressure. Suggest trial use of anti-anxiety medication subject to patient?s comfort. A referral to a behavior therapist who can communicate in [place] is considered for further management. Stress management strategies and monitoring of mental health symptoms are advised. 2. Hormonal Skin Change The patient reports recurring skin changes potentially linked to hormonal fluctuations after . The patient's current skin status will be reviewed in subsequent visits if changes persist. 3. History Of Thyroid Disorder Repeat thyroid levels with emphasis on management continuity. Pending lab results to evaluate metabolic control. Active order for a fasting blood test to assess thyroid function. 4. Essential Hypertension The patient's blood pressure is in the 140s. A home blood pressure monitor is recommended for daily readings over the next 10 days to confirm high readings. Possibility of medication initiation depending on further monitoring results. Follow-up scheduling in three weeks to reassess the condition and discuss potential treatment options. Diagnostic results - Labs: Pending fasting blood test regarding thyroid function. Problem List - Essential Hypertension - Anxiety Disorder - Hormonal Skin Change - History of Thyroid Disorder Health Maintenance: Need OBGYN visit, referral placed [place] [facility] - Referral consideration for behavioral therapist proficient in [place]. Patient Instructions: Follow-up in 4 weeks for blood pressure, labs and anxiety post starting Lexapro 5 mg Medications: New escitalopram oxalate (Lexapro) 5 mg PO DAILY 30 tabs 0RF
== END 2024-07-08 16:13 | disposition home or self-care (01) ==
PROVIDERS: PCP Internal Medicine; Visit Provider Internal Medicine
DX: Z00.00 Encounter for general adult medical examination without abnormal findings (principal); E03.8 Other specified hypothyroidism; F41.1 Generalized anxiety disorder; R73.01 Impaired fasting glucose

== ENCOUNTER → 2024-07-08 15:36 | Outpatient (BNVA) | payer OTHER, SELFPAY | PROVIDERS: PCP Internal Medicine; Visit Provider Internal Medicine | DX: Z00.01 Encounter for general adult medical examination with abnormal findings (principal); F41.1 Generalized anxiety disorder; E03.8 Other specified hypothyroidism; R73.01 Impaired fasting glucose; I10 Essential (primary) hypertension | CPT/HCPCS: 96127 ==

== ENCOUNTER 2024-07-28 09:41 | Outpatient (REF) | payer OTHER, SELFPAY ==
[2024-07-28 13:06] LABS: MANUAL DIFF FLAG NO
[2024-07-28 13:22] LABS: Basophils Absolute Auto 0.1 X10*3/uL (0.0-0.2); Basophils Percent Auto 0.9 % (0-2); Eosinophils Absolute Auto 0.1 X10*3/uL (0.0-0.4); Eosinophils Percent Auto 1.6 % (0-4); Hematocrit 40.5 % (37.0-47.0); Hemoglobin 13.7 g/dl (12.0-16.0); Imm Gran Abs Auto 0.02 X10*3/uL (0.00-0.03); Imm Gran Pct Auto 0.3 % (0.0-0.4); Lymphocytes Absolute Auto 2.7 X10*3/uL (1.2-4.9); Lymphocytes Percent Auto 39.9 % (20-40); Mean Corpuscular HGB Conc 33.8 g/dl (31.0-35.0); Mean Corpuscular Hemoglobin 27.8 pg (27.0-33.0); Mean Corpuscular Volume 82.2 fL (80.0-98.0); Mean Platelet Volume 10.7 fL (9.4-12.3); Monocytes Absolute Auto 0.4 X10*3/uL (0.1-1.2); Monocytes Percent Auto 6.4 % (2-11); Neutrophils Absolute Auto 3.4 x10*3/uL (2.0-8.3); Neutrophils Percent Auto 50.9 % (45-73); Platelet Count 310 X10*3/uL (160-400); Red Blood Count 4.93 X10*6/uL (4.20-5.50); Red Cell Distribution Width 14.7 % (11.0-16.0); White Blood Count 6.7 X10*3/uL (4.8-10.8)
[2024-07-28 13:37] LABS: Estimated Average Glucose 111 mg/dL; Hemoglobin A1C 116.4385 umol/L; Hemoglobin A1c % 5.5 % (<6.0); Total Hemoglobin (HGBA1C) 3222.6447 umol/L
[2024-07-28 13:49] LABS: Alanine Aminotransferase 25 U/L (0-31); Alkaline Phosphatase 32 U/L (39-117); Anion Gap 10 (12-20); Aspartate Amino Transferase 20 U/L (5-31); Bilirubin Total 0.4 mg/dL (0.0-1.0); Blood Urea Nitrogen 8 mg/dL (9-16); Calcium 8.8 mg/dL (8.4-10.2); Carbon Dioxide 27 mmol/L (22-29); Chloride 108 mmol/L (96-108); Cholesterol 160 mg/dL (<200); Estimated Glomerular Filt Rate > 60; Glucose Fasting 91 mg/dL (60-99); HDL Cholesterol 51 mg/dL (>40); LDL Cholesterol Calculated 87 mg/dL (<100); Potassium 4.5 mmol/L (3.3-5.1); Sodium 140 mmol/L (135-145); Total Protein 6.3 g/dL (6.5-8.0); Triglycerides 111 mg/dL (<150)
[2024-07-28 14:08] LABS: TSH reflex Free T4 2.82 uIU/mL (0.32-4.0)
[2024-08-01 15:18] LABS: Vitamin D 25-OH, D2 <4 ng/mL; Vitamin D 25-OH, D3 27 ng/mL; Vitamin D 25-OH, Total 27 ng/mL (30-100)
== END 2024-07-28 09:42 | disposition home or self-care (01) ==
LOC: HO.HMGCLDS 09:41
PROVIDERS: PCP Internal Medicine; Visit Provider Internal Medicine
DX: E03.8 Other specified hypothyroidism (principal); R73.01 Impaired fasting glucose; E55.9 Vitamin D deficiency, unspecified; E66.09 Other obesity due to excess calories; Z68.30 Body mass index [BMI] 30.0-30.9, adult; Z91.09 Other allergy status, other than to drugs and biological substances
CPT/HCPCS: 36415; 80053; 80061; 82306; 83036; 84443; 85025

== ENCOUNTER 2024-08-08 12:57 | Outpatient (AMB) | payer OTHER, SELFPAY ==
[2024-08-08 13:00] VITALS: BP 120/86; PULSE 76; O2SAT 97; BMI 29.2
--- NOTE | 2024-08-08 13:00 | MHC.PC.OV ---
Vital Signs 08/08/24 13:00 Height 5 ft 6 in Weight 181 lb BMI 29.2 BP 120/86 Blood Pressure Location Lt brachial Position Sitting Pulse 76 Pulse Source Pulse Oximeter Pulse Oximetry (%) 97 Oxygen Delivery Method Room Air Intake Visit Reasons: 4 weeks f/up Allergies No Known Allergies Allergy (Verified 08/08/24 13:02) Medication List - Last Reconciled 08/08/24 by Norman Xiao MD cetirizine (All Day Allergy (cetirizine)) 10 mg PO .qhs 90 days cholecalciferol (vitamin D3) 1,250 mcg PO QWEEK 3 months escitalopram oxalate (Lexapro) 5 mg PO DAILY fluticasone propionate 50 mcg/actuation 1 spray intranasal BID levothyroxine 88 mcg PO DAILY 90 days montelukast 10 mg PO DAILY Tobacco use date assessed: 08/08/24 Dental Screening Dental Screen Date: 08/08/24 Did you have a dental visit in the last 12 months?: Yes Did you have a dental problem in the last 6 months where you did not have access to dental care?: No Was dental information given to patient?: Patient has dentist HPI 4 weeks f/up HPI Details History of Present Illness - The patient is a 38-year-old female presenting with a follow-up appointment for anxiety management and medication review. - Generalized Anxiety Disorder is being managed with Lexapro, adherence confirmed, and effectiveness noted without adverse effects. - History of hypothyroidism managed with Levothyroxine, taken regularly. - Allergic rhinitis was previously managed but medications are currently not in use by the patient's choice. - Vitamin D deficiency identified, with ongoing supplementation as recommended. Plan The patient is to continue her current anxiety management regimen with Lexapro, and a three-month supply has been prescribed. For hypothyroidism, ongoing Levothyroxine is advised. As indicated by laboratory results pointing to Vitamin D deficiency, the patient will maintain supplementation with gelatin-free Vitamin D tablets. Though medication for allergic rhinitis is not required at present, reevaluation in seasons prone to exacerbation is anticipated. Current lab results are stable for cholesterol, and liver enzymes present mild alterations without immediate concern. Blood pressure control is satisfactory at present levels. Patient Instructions - Continue taking Lexapro as prescribed for anxiety. - Continue daily Levothyroxine for thyroid management. - Keep up with Vitamin D supplementation, ensuring tablets do not contain gelatin. - Refrain from taking Montelukast and Citrizine unless symptoms of allergies necessitate their use. - Schedule a follow-up in three months or contact the office earlier if new concerns arise. - Monitor blood pressure regularly since it's currently well-controlled. Review of Systems - General: Reports no adverse side effects from anxiety medication. - Endocrine: Reports regularly taking Levothyroxine. - Respiratory: Denies current use of Montelukast or Citrizine due to no recent symptoms. - Musculoskeletal: Reports continuing Vitamin D supplementation as advised. - General: No fever no chills - Neurological: No headaches no dizziness - Ear nose throat: No sore throat no hearing difficulty no ear pain - Cardiovascular: No syncope, no chest pain, no palpitations - Gastrointestinal: No nausea vomiting or diarrhea - Endocrine: No polyuria polydipsia no heat intolerance - Genitourinary: No dysuria , no blood in urine Physical Exam General: No acute distress HEENT: No acute findings Neck: Supple Respiratory system: Able to talk in full sentences, no audible wheeze cardiovascular: S1-S2 regular in rate and rhythm, blood pressure is 120, perfect Gastrointestinal: No pain Extremities: No new findings 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 1. Little interest or pleasure in doing things: not at all 2. Feeling down, depressed, or hopeless: not at all 3. Trouble falling or staying asleep, or sleeping too much: not at all 4. Feeling tired or having little energy: several days 5. Poor appetite or overeating: not at all 6. Feeling bad about yourself - or that you are a failure or have let yourself or your family down: not at all 7. Trouble concentrating on things, such as reading the newspaper or watching television: several days 8. Moving or speaking so slowly that other people could have noticed. Or the opposite - being so fidgety or restless that you have been moving around a lot more than usual: not at all 9. Thoughts that you would be better off or of hurting yourself in some way: not at all Total score: 2 Depression Screening Interpretation: Negative Depression Screening Done: Yes 26881 - PHQ-9 Billing: Yes Source: Developed by Drs. David Cano, Gloria William, Jerome Figueroa and colleagues, with an educational celia from [employer]. Thrive Questionnaire Date Thrive assessed: 08/08/24 I am a: Patient What is your living situation today?: I have a steady place to live Within the past 12 months, did the food you bought not last and you didn't have the money to get more?: Never true Within the past 12 months, did you worry whether your food would run out before you got money to buy more?: Never true Do you have trouble paying for medicines?: No Do you have trouble getting transportation to medical appointments?: No Do you have trouble paying your heating and electricity bill?: No Do you have trouble taking care of your child, family member or friend?: No Do you have trouble with day-to-day activities such as bathing, preparing meals, shopping, managing finances, etc.?: No Are you currently unemployed and looking for a job?: No Are you interested in more education?: No Please select the resources that you would like help with: None Currently or been in a relationship where the following occur: No concerns reported THRIVE Score: 0 AUDIT C Alcohol Use Questionnaire (AUDIT-C) 1. How often do you have a drink containing alcohol?: Never 3. How often do you have six or more drinks on one occasion?: Never Total Score: 0 ROCIO-7 AMB Questionnaire ROCIO-7 Date ROCIO - 7 assessed: 08/08/24 Feeling nervous, anxious, or on edge: 1 = Several days Not being able to stop or control worryin = Several days Worrying too much about different things: 1 = Several days Trouble relaxin = Several days Being so restless that it is hard to sit still: 0 = Not at all Becoming easily annoyed or irritable: 0 = Not at all Feeling afraid as if something awful might happen: 0 = Not at all Total ROCIO-7 score (0-4 normal; 5-9 mild; 10-14 moderate; 15-21 severe): 4 Source: Developed by Drs. David Cano, Gloria William, Jerome Figueroa and colleagues, with an educational celia from [employer]. ROCIO-7 Assessment Billing ROCIO-7 Assessment Tool: ROCIO-7 Assessment 22659 Physical exam (Primary Care) Vital Signs: Last Vital Signs Pulse 76 08/08/24 13:00 BP 120/86 08/08/24 13:00 Pulse Ox 97 08/08/24 13:00 Oxygen Delivery Method Room Air 08/08/24 13:00 BMI result Body Mass Index 29.2 Tobacco/Smoking Status: Tobacco use Status Tobacco use date assessed 08/08/24 08/08/24 13:05 Patient Tobacco Use Status Never used Tobacco 08/08/24 13:05 e-Cigarette/Vaping Use Never Used 08/08/24 13:05 PHQ-9: PHQ-9 Score PHQ-9: Total score 2 08/08/24 13:05 Depression Screening Interpretation: Negative Thrive Assessment: Date of Thrive Assessment Date Thrive assessed 08/08/24 08/08/24 13:05 Currently or been in a relationship where the following occur: No concerns reported Coding Level of Care Code Est Pt Level 3 (73988) Diagnoses Anxiety, generalized F41.1 Vitamin D deficiency E55.9 Impaired fasting blood sugar R73.01 Environmental allergies Z91.09 Other specified hypothyroidism E03.8 Additional Codes ROCIO-7 Assessment Billing - ROCIO-7 Assessment Tool: ROCIO-7 Assessment 65742 ([id number]) PHQ-9 - 08526 - PHQ-9 Billing: Yes ([id number]) Assessment & Plan Assessment & Plan (1) Anxiety, generalized: Code(s): F41.1 - Generalized anxiety disorder Category: Medical (2) Vitamin D deficiency: Code(s): E55.9 - Vitamin D deficiency, unspecified Category: Medical (3) Impaired fasting blood sugar: Code(s): R73.01 - Impaired fasting glucose Category: Medical (4) Environmental allergies: Code(s): Z91.09 - Other allergy status, other than to drugs and biological substances Category: Medical (5) Other specified hypothyroidism: Code(s): E03.8 - Other specified hypothyroidism Category: Medical Plan - The patient is a 38-year-old female presenting with a follow-up appointment for anxiety management and medication review. - Generalized Anxiety Disorder is being managed with Lexapro, adherence confirmed, and effectiveness noted without adverse effects. - History of hypothyroidism managed with Levothyroxine, taken regularly. - Allergic rhinitis was previously managed but medications are currently not in use by the patient's choice. - Vitamin D deficiency identified, with ongoing supplementation as recommended. Plan The patient is to continue her current anxiety management regimen with Lexapro, and a three-month supply has been prescribed. For hypothyroidism, ongoing Levothyroxine is advised. As indicated by laboratory results pointing to Vitamin D deficiency, the patient will maintain supplementation with gelatin-free Vitamin D tablets. Though medication for allergic rhinitis is not required at present, reevaluation in seasons prone to exacerbation is anticipated. Current lab results are stable for cholesterol, and liver enzymes present mild alterations without immediate concern. Blood pressure control is satisfactory at present levels. Patient Instructions - Continue taking Lexapro as prescribed for anxiety. - Continue daily Levothyroxine for thyroid management. - Keep up with Vitamin D supplementation, ensuring tablets do not contain gelatin. - Refrain from taking Montelukast and Citrizine unless symptoms of allergies necessitate their use. - Schedule a follow-up in three months or contact the office earlier if new concerns arise. - Monitor blood pressure regularly since it's currently well-controlled. Medications: New cholecalciferol (vitamin D3) 25 mcg PO DAILY 90 days 90 tabs 1RF Refilled escitalopram oxalate (Lexapro) 5 mg PO DAILY 90 tabs 0RF
== END 2024-08-08 13:20 | disposition home or self-care (01) ==
PROVIDERS: PCP Internal Medicine; Visit Provider Internal Medicine
DX: F41.1 Generalized anxiety disorder (principal); E55.9 Vitamin D deficiency, unspecified; R73.01 Impaired fasting glucose; Z91.09 Other allergy status, other than to drugs and biological substances; E03.8 Other specified hypothyroidism

== ENCOUNTER → 2024-08-08 12:57 | Outpatient (BNVA) | payer OTHER, SELFPAY | PROVIDERS: PCP Internal Medicine; Visit Provider Internal Medicine | DX: F41.1 Generalized anxiety disorder (principal); E55.9 Vitamin D deficiency, unspecified; R73.01 Impaired fasting glucose; E03.8 Other specified hypothyroidism; Z91.09 Other allergy status, other than to drugs and biological substances; Z79.899 Other long term (current) drug therapy | CPT/HCPCS: 96127 ==

== ENCOUNTER 2024-12-03 08:58 | Outpatient (AMB) | payer OTHER, SELFPAY ==
[2024-12-03 09:03] VITALS: BP 120/82; PULSE 68; O2SAT 98
--- NOTE | 2024-12-03 09:03 | MHC.OFFWIV ---
Intake Vital Signs 12/03/24 09:03 Weight 183 lb BP 120/82 Blood Pressure Location Rt brachial Position Sitting Pulse 68 Pulse Oximetry (%) 98 Oxygen Delivery Method Room Air Intake Visit Reasons: EP-b/l hands itchy, pain, swollen Intake Note: Patient here for bilat hand itching, swelling and pain that started over the weekend. Patient Tobacco Use Status: Never used Tobacco Allergies No Known Allergies Allergy (Verified 12/03/24 09:13) Medication List - Last Reconciled 12/03/24 by Norman Xiao MD cetirizine (All Day Allergy (cetirizine)) 10 mg PO .qhs 90 days cholecalciferol (vitamin D3) 25 mcg PO DAILY 90 days escitalopram oxalate (Lexapro) 5 mg PO DAILY fluticasone propionate 50 mcg/actuation 1 spray intranasal BID levothyroxine 88 mcg PO DAILY 90 days montelukast 10 mg PO DAILY HPI EP-b/l hands itchy, pain, swollen HPI Details History - The patient is a 38-year-old female presenting with joint pain and swelling. - She reports the onset of joint pain beginning on Sunday with associated joint swelling. - By Sunday, joint swelling was significant and resulted in skin tension, limited range of motion, and difficulty gripping objects. - Symptoms were described as being more prominent in the morning and then slightly improving by evening, with a gradual reduction in severity by Sunday. - The patient experienced chills and fatigue but reported no fever, nausea, vomiting, cough, or abdominal pain. - As of today, the patient reports the additional symptom of skin irritation characterized by redness and itchiness, primarily affecting the hands. - The patient's has experienced similar symptoms, raising the possibility of a shared exposure. - No other family members have reported similar symptoms. Problem List - Viral Syndrome Patient Instructions - Use Advil or ibuprofen as directed for inflammation. - Monitor symptoms, and if there is no improvement by next week, consider taking the prescribed prednisone for three days. - Take prednisone 5 mg for 3 days only once a day, - Rest and allow your body to build immunity naturally. - Keep track of any new symptoms and report if they persist or worsen. - Ensure to call the direct number if returning to the clinic to verify hours. 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 Skin: Red, itchy rash, normal turgor [facility] Social History Housing: House Patient Tobacco Use Status: Never used Tobacco e-Cigarette/Vaping Use: Never Used Second Hand Smoke Exposure: No service: No Current occupational status: employed Cognitive needs: No Hearing needs: No Vision needs: No Physical Exam Vital Signs: Last Vital Signs Pulse 68 12/03/24 09:03 BP 120/82 12/03/24 09:03 Pulse Ox 98 12/03/24 09:03 Oxygen Delivery Method Room Air 12/03/24 09:03 Assessment & Plan Assessment & Plan (1) Viral syndrome: Code(s): B34.9 - Viral infection, unspecified Plan History - The patient is a 38-year-old female presenting with joint pain and swelling. - She reports the onset of joint pain beginning on Sunday with associated joint swelling. - By Sunday, joint swelling was significant and resulted in skin tension, limited range of motion, and difficulty gripping objects. - Symptoms were described as being more prominent in the morning and then slightly improving by evening, with a gradual reduction in severity by Sunday. - The patient experienced chills and fatigue but reported no fever, nausea, vomiting, cough, or abdominal pain. - As of today, the patient reports the additional symptom of skin irritation characterized by redness and itchiness, primarily affecting the hands. - The patient's has experienced similar symptoms, raising the possibility of a shared exposure. - No other family members have reported similar symptoms. Problem List - Viral Syndrome Patient Instructions - Use Advil or ibuprofen as directed for inflammation. - Monitor symptoms, and if there is no improvement by next week, consider taking the prescribed prednisone for three days. - Take prednisone 5 mg for 3 days only once a day, - Rest and allow your body to build immunity naturally. - Keep track of any new symptoms and report if they persist or worsen. - Ensure to call the direct number if returning to the clinic to verify hours. Medications: New prednisone 5 mg PO DAILY 3 tabs 0RF 3 days Coding Level of Care Code Est Pt Level 3 (90513) Diagnoses Viral syndrome B34.9
== END 2024-12-03 09:37 | disposition home or self-care (01) ==
PROVIDERS: PCP Internal Medicine; Visit Provider Internal Medicine
DX: B34.9 Viral infection, unspecified (principal)

== ENCOUNTER → 2024-12-03 08:58 | Outpatient (BNVA) | payer OTHER, SELFPAY | PROVIDERS: PCP Internal Medicine; Visit Provider Physician Assistant ==

== ENCOUNTER 2024-12-12 14:57 | Outpatient (REF) | payer OTHER, SELFPAY ==
[2024-12-12 16:03] LABS: MANUAL DIFF FLAG NO
[2024-12-12 16:30] LABS: Basophils Absolute Auto 0.1 X10*3/uL (0.0-0.2); Basophils Percent Auto 1.1 % (0-2); Eosinophils Absolute Auto 0.1 X10*3/uL (0.0-0.4); Eosinophils Percent Auto 1.2 % (0-4); Imm Gran Abs Auto 0.03 X10*3/uL (0.00-0.03); Imm Gran Pct Auto 0.4 % (0.0-0.4); Lymphocytes Absolute Auto 1.8 X10*3/uL (1.2-4.9); Lymphocytes Percent Auto 24.4 % (20-40); Mean Corpuscular HGB Conc 32.4 g/dl (31.0-35.0); Mean Corpuscular Hemoglobin 26.6 pg (27.0-33.0); Mean Platelet Volume 10.1 fL (9.4-12.3); Monocytes Absolute Auto 0.5 X10*3/uL (0.1-1.2); Monocytes Percent Auto 6.1 % (2-11); Neutrophils Absolute Auto 4.9 x10*3/uL (2.0-8.3); Neutrophils Percent Auto 66.8 % (45-73); Platelet Count 332 X10*3/uL (160-400); Red Blood Count 4.51 X10*6/uL (4.20-5.50); Red Cell Distribution Width 15.7 % (11.0-16.0); White Blood Count 7.4 X10*3/uL (4.8-10.8)
[2024-12-12 16:36] LABS: Estimated Average Glucose 117 mg/dL; Hemoglobin A1C 122.6389 umol/L; Hemoglobin A1c % 5.7 % (<6.0); Total Hemoglobin (HGBA1C) 3199.3161 umol/L
[2024-12-12 17:08] LABS: Alanine Aminotransferase 31 U/L (0-31); Albumin Level 4.2 g/dL (3.5-5.0); Alkaline Phosphatase 39 U/L (39-117); Anion Gap 13 (12-20); Aspartate Amino Transferase 19 U/L (5-31); Bilirubin Total 0.4 mg/dL (0.0-1.0); Blood Urea Nitrogen 12 mg/dL (9-16); Calcium 9.5 mg/dL (8.4-10.2); Carbon Dioxide 26 mmol/L (22-29); Chloride 106 mmol/L (96-108); Estimated Glomerular Filt Rate > 60; Glucose Random 79 mg/dL (60-115); Potassium 4.5 mmol/L (3.3-5.1); Sodium 140 mmol/L (135-145); Total Protein 6.9 g/dL (6.5-8.0)
== END 2024-12-12 14:58 | disposition home or self-care (01) ==
LOC: HO.HMGCLDS 14:57
PROVIDERS: PCP Internal Medicine; Visit Provider Internal Medicine
DX: F41.1 Generalized anxiety disorder (principal); E55.9 Vitamin D deficiency, unspecified; R73.01 Impaired fasting glucose; E03.8 Other specified hypothyroidism; Z91.09 Other allergy status, other than to drugs and biological substances
CPT/HCPCS: 36415; 80053; 83036; 84443; 85025

== ENCOUNTER 2024-12-12 14:57 | Outpatient (AMB) | payer OTHER, SELFPAY ==
[2024-12-12 14:57] VITALS: BP 118/76; PULSE 74; O2SAT 97; BMI 29.4
--- NOTE | 2024-12-12 14:57 | A.OFFPC_ITS ---
Vital Signs 12/12/24 14:57 Height 5 ft 6 in Weight 182 lb 4 oz BMI 29.4 BP 118/76 Blood Pressure Location Rt brachial Position Sitting Pulse 74 Pulse Source Pulse Oximeter Pulse Oximetry (%) 97 Oxygen Delivery Method Room Air Intake Visit Reasons: follow up Allergies No Known Allergies Allergy (Verified 12/12/24 14:57) Medication List - Last Reconciled 12/12/24 by Norman Xiao MD cetirizine (All Day Allergy (cetirizine)) 10 mg PO .qhs 90 days cholecalciferol (vitamin D3) 25 mcg PO DAILY 90 days escitalopram oxalate (Lexapro) 5 mg PO DAILY levothyroxine 88 mcg PO DAILY 90 days montelukast 10 mg PO DAILY Tobacco use date assessed: 12/12/24 Dental Screening Dental Screen Date: 12/12/24 Did you have a dental visit in the last 12 months?: Yes Did you have a dental problem in the last 6 months where you did not have access to dental care?: No Was dental information given to patient?: Patient has dentist HPI follow up HPI Details History - The patient is a 39-year-old female pr esenting for her regular follow-up appointment and also from visit from walk-in clinic few days ago Patient had a viral syndrome with swelling of her hand and severe body aches and pains She was treated with prednisone She is feeling better her symptoms has resolved Has been having allergies which are seasonal with symptoms of allergic rhinitis. Requesting allergy medication She was given montelukast which she did not take consistently, I have sent cetirizine and montelukast script again - Thyroid medication is being taken cons istently; however, routine follow-up blood tests for thyroid function are overdue. - Anxiety is being managed with medicati on. The patient seeing a therapist in [place] She is currently taking Lexapro 5 mg which is helping but not enough We will be increasing the dose to 10 mg Problem List - Allergies - Hypothyroidism - Anxiety Disorder Patient Instructions - Use [id number] allergy medicatio ns like Claritin or Zyrtec as needed. And montelukast - Continue taking thyroid medication as prescribed. - Proceed to the lab immediately for a b lood test to assess thyroid function sin ce the lab is closing soon. - Continue anxiety medication; at higher dose Lexapro 10 mg - Follow up with a therapist if needed, based on the effectiveness of the anxiety medication. - Remember to schedule the three-month f ollow-up appointment. Review of Systems - General: No fever no chills - Neurological: No headaches no dizziness - Ear nose throat: No sore throat no hearing difficulty no ear pain - Cardiovascular: No syncope, no chest pain, no palpitations - Gastrointestinal: No nausea vomiting or diarrhea - Endocrine: No polyuria polydipsia no heat intolerance - Genitourinary: No dysuria , no blood in urine Physical Exam - General: No acute distress - HEENT: No acute findings - Neck: Supple - Respiratory system: Able to talk in f ull sentences, no audible wheeze - Cardiovascular: S1-S2 regular in rate and rhythm - Gastrointestinal: No pain - Extremities: No new findings - 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 - Skin: Normal turgor [facility] Social History Housing: House Patient Tobacco Use Status: Never used Tobacco e-Cigarette/Vaping Use: Never Used Second Hand Smoke Exposure: No service: No Current occupational status: employed Cognitive needs: No Hearing needs: No Vision needs: No Questionnaire Thrive Questionnaire Date Thrive assessed: 12/12/24 I am a: Patient What is your living situation today?: I have a steady place to live Within the past 12 months, did the food you bought not last and you didn't have the money to get more?: Never true Within the past 12 months, did you worry whether your food would run out before you got money to buy more?: Never true Do you have trouble paying for medicines?: No Do you have trouble getting transportation to medical appointments?: No Do you have trouble paying your heating and electricity bill?: No Do you have trouble taking care of your child, family member or friend?: No Do you have trouble with day-to-day activities such as bathing, preparing meals, shopping, managing finances, etc.?: No Are you currently unemployed and looking for a job?: No Are you interested in more education?: No Please select the resources that you would like help with: None Currently or been in a relationship where the following occur: No concerns reported THRIVE Score: 0 AUDIT C Alcohol Use Questionnaire (AUDIT-C) 1. How often do you have a drink containing alcohol?: Never 3. How often do you have six or more drinks on one occasion?: Never Total Score: 0 Score Reviewed/Action Taken: Yes ROCIO-7 AMB Questionnaire ROCIO-7 Date ROCIO - 7 assessed: 08/08/24 Source: Developed by Drs. David Cano, Gloria William, Jerome Figueroa and colleagues, with an educational celia from [employer]. Physical exam (Primary Care) Vital Signs: Last Vital Signs Pulse 74 12/12/24 14:57 BP 118/76 12/12/24 14:57 Pulse Ox 97 12/12/24 14:57 Oxygen Delivery Method Room Air 12/12/24 14:57 BMI result Body Mass Index 29.4 Tobacco/Smoking Status: Tobacco use Status Tobacco use date assessed 12/12/24 12/12/24 15:03 Patient Tobacco Use Status Never used Tobacco 12/12/24 15:03 e-Cigarette/Vaping Use Never Used 12/12/24 15:03 Thrive Assessment: Date of Thrive Assessment Date Thrive assessed 12/12/24 12/12/24 15:03 Currently or been in a relationship where the following occur: No concerns reported Coding Level of Care Code Est Pt Level 4 (10902) Diagnoses Anxiety, generalized F41.1 Vitamin D deficiency E55.9 Impaired fasting blood sugar R73.01 Other specified hypothyroidism E03.8 Environmental allergies Z91.09 Assessment & Plan Assessment & Plan (1) Anxiety, generalized: Code(s): F41.1 - Generalized anxiety disorder Category: Medical (2) Vitamin D deficiency: Code(s): E55.9 - Vitamin D deficiency, unspecified Category: Medical (3) Impaired fasting blood sugar: Code(s): R73.01 - Impaired fasting glucose Category: Medical (4) Other specified hypothyroidism: Code(s): E03.8 - Other specified hypothyroidism Category: Medical (5) Environmental allergies: Code(s): Z91.09 - Other allergy status, other than to drugs and biological substances Category: Medical Plan History - The patient is a 39-year-old female presenting for her regular follow-up appointment and also from visit from walk-in clinic few days ago Patient had a viral syndrome with swelling of her hand and severe body aches and pains She was treated with prednisone She is feeling better her symptoms has resolved Has been having allergies which are seasonal with symptoms of allergic rhinitis. Requesting allergy medication She was given montelukast which she did not take consistently, I have sent c etirizine and montelukast script again - Thyroid medication is being taken consistently; however, routine follow-up blood tests for thyroid function are overdue. - Anxiety is being managed with medication. The patient seeing a therapist in [place] She is currently taking Lexapro 5 mg which is helping but not enough We will be increasing the dose to 10 mg Problem List - Allergies - Hypothyroidism - Anxiety Disorder - impaired fasting sugar Patient Instructions - Use [id number] allergy medications like Claritin or Zyrtec as needed. And montelukast - Continue taking thyroid medication as prescribed. - Proceed to the lab immediately for a blood test to assess thyroid function since the lab is closing soon. - Continue anxiety medication; at higher dose Lexapro 10 mg - Follow up with a therapist if needed, based on the effectiveness of the anxiety medication. - Remember to schedule the three-month follow-up appointment. Orders: Orders Complete Blood Count Auto Diff Today E03.8 - Other specified hypothyroidism, E55.9 - Vitamin D deficiency, unspecified, F41.1 - Generalized anxiety disorder, R73.01 - Impaired fasting glucose, Z91.09 - Other allergy status, other than to drugs and biological substances Comprehensive Met. Panel Today E03.8 - Other specified hypothyroidism, E55.9 - Vitamin D deficiency, unspecified, F41.1 - Generalized anxiety disorder, R73.01 - Impaired fasting glucose, Z91.09 - Other allergy status, other than to drugs and biological substances Hemoglobin A1c Today R73.01 - Impaired fasting glucose TSH reflex Free T4 Today E03.8 - Other specified hypothyroidism, E55.9 - Vitamin D deficiency, unspecified, F41.1 - Generalized anxiety disorder, R73.01 - Impaired fasting glucose, Z91.09 - Other allergy status, other than to drugs and biological substances Medications: Changed From escitalopram oxalate (Lexapro) 5 mg PO DAILY 90 tabs 0RF To escitalopram oxalate 10 mg PO DAILY 90 tabs 0RF Refilled montelukast 10 mg PO DAILY 90 tabs 0RF cetirizine (All Day Allergy (cetirizine)) 10 mg PO .qhs 90 days 90 tabs 1RF Z91.09 - Other allergy status, other than to drugs and biological substances
== END 2024-12-12 15:24 | disposition home or self-care (01) ==
PROVIDERS: PCP Internal Medicine; Visit Provider Internal Medicine
DX: F41.1 Generalized anxiety disorder (principal); E55.9 Vitamin D deficiency, unspecified; R73.01 Impaired fasting glucose; E03.8 Other specified hypothyroidism; Z91.09 Other allergy status, other than to drugs and biological substances

== ENCOUNTER 2025-04-15 10:31 | Outpatient (AMB) | payer OTHER, SELFPAY ==
[2025-04-15 10:35] VITALS: BP 112/68; PULSE 86; TEMP 36.9; O2SAT 98; BMI 28.7
--- NOTE | 2025-04-15 10:35 | AM.OFFWIN_ITS ---
Intake Vital Signs 04/15/25 10:35 Height 5 ft 6 in Weight 178 lb BMI 28.7 BP 112/68 Blood Pressure Location Lt brachial Position Sitting Pulse 86 Pulse Source Pulse Oximeter Temp 98.5 F Temp Source Oral Pulse Oximetry (%) 98 Oxygen Delivery Method Room Air Intake Visit Reasons: EP flu symptoms Intake Note: pt presents with chest congestion with dry cough, sinus congestion, hot sweats, fatigue for a few days Patient Tobacco Use Status: Never used Tobacco Allergies No Known Allergies Allergy (Verified 04/15/25 10:39) Medication List - Last Reconciled 04/15/25 by Norman Xiao MD cetirizine (All Day Allergy (cetirizine)) 10 mg PO .qhs 90 days cholecalciferol (vitamin D3) 25 mcg PO DAILY 90 days escitalopram oxalate 10 mg PO DAILY levothyroxine 88 mcg PO DAILY 90 days montelukast 10 mg PO DAILY Do you need a note to return to daycare/school/sports/work: Yes HPI EP flu symptoms HPI Details History of Present Illness The patient is a 39-year-old female presenting with a cough and chest congestion. 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 - Mentions having a son who has shown si milar illness symptoms recently. Problem List - Cough - Chest Congestion - anxiety Patient Instructions - I will inform you about diagnostic jeremy t results and subsequent treatment recommendations. 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 motor sensory intact Skin: Normal turgor [facility] Social History Housing: House Patient Tobacco Use Status: Never used Tobacco e-Cigarette/Vaping Use: Never Used Second Hand Smoke Exposure: No service: No Current occupational status: employed Cognitive needs: No Hearing needs: No Vision needs: No Physical Exam Vital Signs: Last Vital Signs Temp 98.5 F 04/15/25 10:35 Pulse 86 04/15/25 10:35 BP 112/68 04/15/25 10:35 Pulse Ox 98 04/15/25 10:35 Oxygen Delivery Method Room Air 04/15/25 10:35 BMI result Body Mass Index 28.7 Assessment & Plan Assessment & Plan (1) Chest congestion: Code(s): R09.89 - Other specified symptoms and signs involving the circulatory and respiratory systems (2) Spasmodic cough: Code(s): R05.8 - Other specified cough (3) Chills: Code(s): R68.83 - Chills (without fever) (4) Anxiety, generalized: Code(s): F41.1 - Generalized anxiety disorder Plan History of Present Illness The patient is a 39-year-old female presenting with a cough and chest congestion. 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 - Mentions having a son who has shown similar illness symptoms recently. Problem List - Cough - Chest Congestion - anxiety Patient Instructions - I will inform you about diagnostic test results and subsequent treatment recommendations. Flu COVID RSV test taken - treatment according to report, escitalopram refill provided Orders: Orders SARS-CoV2/FLU/RSV Today R09.89 - Other specified symptoms and signs involving the circulatory and respiratory systems Medications: Refilled escitalopram oxalate 10 mg PO DAILY 90 tabs 0RF Coding Level of Care Code Est Pt Level 3 (00276) Diagnoses Chest congestion R09.89 Spasmodic cough R05.8 Chills R68.83 Anxiety, generalized F41.1
== END 2025-04-15 10:56 | disposition home or self-care (01) ==
PROVIDERS: PCP Internal Medicine; Visit Provider Internal Medicine
DX: R09.89 Other specified symptoms and signs involving the circulatory and respiratory systems (principal); R05.8 Other specified cough; R68.83 Chills (without fever); F41.1 Generalized anxiety disorder

== ENCOUNTER 2025-04-15 10:31 | Outpatient (REF) | payer OTHER, SELFPAY ==
[2025-04-15 16:59] LABS: Resp Syncy Virus RNA Qual PCR NEGATIVE (Negative); SARS COV2 PCR INHOUSE NEGATIVE (Negative)
== END 2025-04-15 10:32 | disposition home or self-care (01) ==
LOC: HO.LNP 10:31
PROVIDERS: PCP Internal Medicine; Visit Provider Internal Medicine
DX: R09.89 Other specified symptoms and signs involving the circulatory and respiratory systems (principal); R05.8 Other specified cough; R68.83 Chills (without fever); F41.1 Generalized anxiety disorder; Z79.890 Hormone replacement therapy
CPT/HCPCS: 87637

== ENCOUNTER 2025-07-29 11:15 | Outpatient (REF) | payer OTHER, SELFPAY ==
[2025-07-29 15:25] LABS: Resp Syncy Virus RNA Qual PCR NEGATIVE (Negative); SARS COV2 PCR INHOUSE NEGATIVE (Negative)
== END 2025-07-29 11:16 | disposition home or self-care (01) ==
LOC: HO.LNP 11:15
PROVIDERS: Physician Assistant; PCP Internal Medicine
DX: Z03.818 Encounter for observation for suspected exposure to other biological agents ruled out (principal)
CPT/HCPCS: 87637

== ENCOUNTER 2025-07-29 11:15 | Outpatient (AMB) | payer OTHER, SELFPAY ==
[2025-07-29 11:17] VITALS: BP 112/64; PULSE 84; TEMP 36.7; O2SAT 98; BMI 29.5
--- NOTE | 2025-07-29 11:17 | AM.OFFWIN_ITS ---
Intake Vital Signs 07/29/25 11:17 Height 5 ft 6 in Weight 183 lb BMI 29.5 BP 112/64 Blood Pressure Location Lt brachial Position Sitting Pulse 84 Pulse Source Pulse Oximeter Temp 98.1 F Temp Source Oral Pulse Oximetry (%) 98 Oxygen Delivery Method Room Air Intake Visit Reasons: EP itch throat runny nose left ear pain Intake Note: pt presents with LT ear pain, itchy throat and runny nose x4 days Patient Tobacco Use Status: Never used Tobacco Allergies No Known Allergies Allergy (Verified 07/29/25 11:20) Do you need a note to return to daycare/school/sports/work: No HPI EP itch throat runny nose left ear pain HPI Details This is a 39 year old female patient who presents to the [facility] today with cold symptoms x4 days. She reports her son recently had the flu, and she has similar symptoms. She reports her left ear is quite bothersome for her and that is the reason she came in. Denies any fevers. Other reported symptoms include itchy throat and runny nose. Denies any GI symptoms. [facility] Social History Housing: House Patient Tobacco Use Status: Never used Tobacco e-Cigarette/Vaping Use: Never Used Second Hand Smoke Exposure: No service: No Current occupational status: employed Cognitive needs: No Hearing needs: No Vision needs: No Review of Systems Const All systems reviewed & are unremarkable except as noted in HPI and below Physical Exam Vital Signs: Last Vital Signs Temp 98.1 F 07/29/25 11:17 Pulse 84 07/29/25 11:17 BP 112/64 07/29/25 11:17 Pulse Ox 98 07/29/25 11:17 Oxygen Delivery Method Room Air 07/29/25 11:17 BMI result Body Mass Index 29.5 Const General: cooperative and no acute distress HEENT Head: Yes normal to inspection Ears: hearing grossly normal bilaterally, external ears normal, TM normal on the right and TM abnormal wth effusion purulent on the left and erythematous on the left General nose exam: Normal external nose present Face and sinus: Yes normal facial exam Throat: Yes posterior oropharynx normal Neck Neck: Yes no lymphadenopathy Resp Effort & Inspection: normal respiratory effort Auscultation: clear to auscultation bilaterally Cardio Rate: regular rate Rhythm: regular rhythm Skin General skin exam: no rashes or lesions noted Extrem General: Yes capillary refill normal and Yes no clubbing, cyanosis or edema Psych Appearance: grossly normal Mental Status: mental status grossly normal Speech and movement: Normal speech and movement present Assessment & Plan Assessment & Plan (1) Left otitis media with effusion: Code(s): H65.92 - Unspecified nonsuppurative otitis media, left ear Plan: Started on Augmentin for left OM. We reviewed indications, use, possible side effects of medication. We discussed that other symptoms are likely attributed to a viral upper respiratory illness, especially considering her son recently had the flu. COVID/flu/RSV swab was obtained, and patient aware she will be notified of results once these are available. We discussed conservative measures for treatment of these symptoms including [id number] cold/flu products, rest, hydration source. If patient does not improve with time and treatment, or if symptoms worsen, she can certainly return to the clinic for further evaluation. All questions were answered and patient verbalizes understanding and agrees to plan. Orders: Orders SARS-CoV2/FLU/RSV Today Oumou Daily PA-C R09.89 - Other specified symptoms and signs involving the circulatory and respiratory systems Medications: New amoxicillin-pot clavulanate 875-125 mg 1 tab PO BID 14 tabs 0RF 7 days WOOD Russo H65.92 - Unspecified nonsuppurative otitis media, left ear Coding Level of Care Code Est Pt Level 4 (39825) Diagnoses Left otitis media with effusion H65.92
== END 2025-07-29 12:25 | disposition home or self-care (01) ==
PROVIDERS: PCP Internal Medicine; Visit Provider Nurse Practitioner Family
DX: H65.92 Unspecified nonsuppurative otitis media, left ear (principal)